=== PATIENT | female | born 1980 | race Caucasian/White ===

== ENCOUNTER 2021-08-11 16:46 | Outpatient (REF) | payer BC, MEDICAID, SELFPAY ==
[2021-08-11 20:54] LABS: HCT 42.9 % (36.0-46.0); HGB 14.1 g/dL (11.2-15.7); MCH 30.4 pg (27.0-33.0); MCHC 32.9 % (32.0-36.0); MCV 92.5 fL (80-95); Platelet Count 178 10^3/uL (130-400); RBC 4.64 10^6/uL (3.93-5.22); RDW 14.2 % (11.7-14.6); RDW-SD 48.4 fL; WBC 6.49 10^3/uL (4.4-10.8)
[2021-08-14 10:27] LABS: Hepatitis C Ab w Rflx HCV PCR Negative (Negative)
[2021-08-14 13:08] LABS: HIV-1/2 Ag & Ab Screen Negative (Negative)
== END 2021-08-11 16:47 | disposition home or self-care (01) ==
LOC: LBN 16:46
PROVIDERS: PCP Nurse Practitioner Adult Health; Visit Provider Nurse Practitioner Adult Health
DX: E66.01 Morbid (severe) obesity due to excess calories; Z51.81 Encounter for therapeutic drug level monitoring; Z11.4 Encounter for screening for human immunodeficiency virus [HIV]; Z11.59 Encounter for screening for other viral diseases
CPT/HCPCS: 80053; 80061; 85027; 86803; 87389; 84443

== ENCOUNTER 2023-11-11 12:29 | Emergency (ER) | payer BC, MEDICAID, SELFPAY ==
[2023-11-11 13:12] VITALS: BP 123/85; PULSE 87; TEMP 36.5; O2SAT 98
--- NOTE | 2023-11-11 14:45 | DI.US_ITS ---
Exam(s) US PELVIS EXAM: US PELVIS CLINICAL HISTORY: bloody discharge, no pain. TECHNIQUE: Transabdominal and transvaginal pelvic ultrasound was performed using standard protocol. COMPARISON: No exams were available for comparison FINDINGS: UTERUS: Position: Anteverted. Size: 10.8 long by 5.5 AP by 6.0 transverse cm Endometrium: 1.7 cm. Normal for patient's menstrual status. Myometrium: Unremarkable. Cervix: Unremarkable. OVARIES: Right: 4.0 x 2.8 x 3.4 cm Cyst or mass: No suspicious cystic or solid masses. There is a 2.2 x 1.6 x 2.2 cm simple cyst. Left: 2.6 x 1.7 x 2.2 cm Cyst or mass: No suspicious cystic or solid masses. DOPPLER: Color: Symmetric and uniform flow to both ovaries. CUL-DE-SAC: Free fluid: None. Other: None. IMPRESSION: 1. Normal-appearing uterus with endometrial stripe within normal limits. 2. Unremarkable bilateral ovaries. 3. Findings were discussed with the emergency department at 4:52 p.m. on 11/11/2023. DATA REPOSITORY:
--- NOTE | 2023-11-11 14:56 | ED.GENADUL_ITS ---
Discharge Plan Discharge Details Chief Complaint: Urinary Primary Care Provider: Ladi Serna ED Provider: Timoteo Queen Home Meds and New Rx's Prescriptions: New hydrocortisone-acetic acid 1-2 % drops 5 drp otic (ear) QID 7 Days Qty: 10 0RF No Action acetaminophen 500 mg capsule 1,000 mg PO Q6H PRN triamcinolone acetonide 0.1 % cream 1 applic topical BID PRN (Reason: itchy skin) Qty: 30 1RF Rx Instructions: apply thin layer to itchy spot (elbows, hands) up to twice per day risperidone 0.5 mg tablet 0.5 mg PO BID MDD 1mg Qty: 60 1RF mupirocin 2 % ointment 1 applic topical TID Qty: 15 0RF Rx Instructions: May substitute with cream if less expensive; use until lesion resolved prazosin 1 mg capsule 1 mg PO QHS escitalopram oxalate 5 mg tablet 15 mg PO DAILY ibuprofen 800 mg tablet 400 - 800 mg PO TID PRN (Reason: pain) Qty: 40 0RF Rx Instructions: Start by taking 800mg (1 tab) 3 times per day with food for 4 days for LEFT SHOULDER PAIN gabapentin 100 mg capsule 100 - 200 mg PO BID PRN (Reason: Left shoulder pain) Qty: 40 0RF Rx Instructions: Start by taking 100mg HS for left shoulder pain; sedating. topiramate [Topamax] 50 mg tablet 50 mg PO BID Qty: 180 3RF Rx Instructions: To add to 25mg BID for TDD 150mg topiramate 25 mg tablet 25 mg PO BID Qty: 180 3RF Rx Instructions: To add to 50mg BID for TDD 150mg atomoxetine 25 mg capsule 25 mg PO DAILY aripiprazole 5 mg tablet 5 mg PO DAILY Patient Comments: TAKE ONE TABLET BY MOUTH EVERY DAY STOP SEROQUEL Medical Decision Making This dictation utilizes [id number] dictation software and may contain unedited grammatical errors. 43 y/o F presents to ED today with a chief complaint of continued spotty bloody discharge since her menses the week of about a month ago, foul- smelling urine, and R ear pain. Onset and characteristics include one month of scant bloody discharge without symptoms of pre-syncope, dizziness, anemia, fever, abdominal pain, dysuria. Patients' medical history: history of psychosis, PTSD. Family and social history: noncontributory. Pertinent exam findings / vital signs include benign abdomen, nontoxic vitals, months-long symptoms without decompensation or worsening. Differential / pathologies of concern include Ruptured ovarian cyst, PID, STI, UTI, Fibroids, Endometriosis, Vaginitis. Diagnostic studies of: -UA, Vaginal wet mount, NG/GC, US Pelvis. -UA shows no UTI -other studies pending at sign-out Interventions of: -outpatient Rx of acetic acid/hydrocortisone drops for possible OE vs mechanical trauma of right ear canal. ED Course/Assessment/Plan: Patient seen in the emergency department with unrelated complaints, subacute vaginal bleeding without symptoms of near syncope or significant blood loss and without fevers or signs of infectious etiology of the pelvis. Right ear pain. There is no signs of acute otitis media and I did prescribe her hydrocortisone- acetic acid eardrops for possible otitis externa. UA, and GGC and vaginal pathogen screen is pending at the time of discharge, there is a possibility for vaginitis versus other pelvic pathology like a ruptured cyst or fibroids. The patient does not have a women's health provider and would like to be connected with the women's wellness center. Patient signed out to oncoming provider Annie Echevarria at shift change. Findings not consistent with PID, infectious etiology. Disposition of Right Ear Pain. Patient verbalized understanding of the plan and return to ED criteria and engaged in shared decision making. Medical Records Medical records reviewed: Yes I reviewed the patient's medical records. Imaging Data Radiologic Study: Imaging: Ultrasound Lab Data Labs: 11/11/23 15:20 Vaginal Vaginitis Screen - Pending Laboratory Tests Range/Units 11/11/23 15:20 Urine Color (Yellow) Yellow Urine Clarity (Clear) Clear Urine pH (5-8) 5.5 Ur Specific [place] (1.005-1.025) 1.020 Urine Protein (Negative) mg/dL Negative Urine Ketones (Negative) mg/dL Trace H Urine Blood (Negative) Moderate H Urine Nitrite (Negative) Negative Urine Bilirubin (Negative) Negative Urine Urobilinogen (Up to 0.2) mg/dL 1.0 H Ur Leukocyte Esterase (Negative) Negative Urine Glucose (Negative) mg/dL Negative HPI General Date/Time Provider Initiated Documentation: 11/11/23 13:36 . HPI Narrative: 43 year-old female presents to ED today by POV/ambulating with a chief complaint of bloody vaginal discharge that started around Thanksgiving during her last menses, with odd-smelling urine with onset the past few days. Also endorses R ear pain. Quality described as not painful at all, no radiation to dizziness, near-syncope, dysuria, hematuria, flank pain, abdominal pain, fever. Severity is described as mild. Palliating factors include nothing attempted. Provoking factors include nothing specific. Events leading up to the incident/Associated Symptoms: Patient does not have a Women's Health provider. Patient not anticoagulated. Related Data Home Medications Medication Instructions Recorded Confirmed acetaminophen 500 mg capsule 1,000 mg PO Q6H PRN 04/13/20 11/11/23 topiramate 25 mg tablet 25 mg PO BID #180 tabs 07/24/21 11/11/23 topiramate 50 mg tablet (Topamax) 50 mg PO BID #180 tabs 07/24/21 12/27/21 mupirocin 2 % topical ointment 1 applic topical TID #15 grams 08/11/21 11/11/23 risperidone 0.5 mg tablet 0.5 mg PO BID #60 tabs 08/11/21 11/11/23 triamcinolone acetonide 0.1 % 1 applic topical BID PRN itchy 08/11/21 12/27/21 topical cream skin #30 grams escitalopram oxalate 5 mg tablet 15 mg PO DAILY 12/27/21 11/11/23 gabapentin 100 mg capsule 100 - 200 mg (1 - 2 x 100 mg) PO 12/27/21 11/11/23 BID PRN Left shoulder pain #40 caps ibuprofen 800 mg tablet 400 - 800 mg (0.5 - 1 x 800 mg) PO 12/27/21 11/11/23 TID PRN pain #40 tabs prazosin 1 mg capsule 1 mg PO QHS 12/27/21 11/11/23 aripiprazole 5 mg tablet 5 mg PO DAILY 11/11/23 11/11/23 atomoxetine 25 mg capsule 25 mg PO DAILY 11/11/23 11/11/23 hydrocortisone-acetic acid 1 %-2 % 5 drp otic (ear) QID otitis 11/11/23 ear drops externa 7 days #10 mL Previous Rx's Medication Instructions Recorded topiramate 25 mg tablet 25 mg PO BID #180 tabs 07/24/21 topiramate 50 mg tablet (Topamax) 50 mg PO BID #180 tabs 07/24/21 mupirocin 2 % topical ointment 1 applic topical TID #15 grams 08/11/21 risperidone 0.5 mg tablet 0.5 mg PO BID #60 tabs 08/11/21 triamcinolone acetonide 0.1 % 1 applic topical BID PRN itchy 08/11/21 topical cream skin #30 grams gabapentin 100 mg capsule 100 - 200 mg (1 - 2 x 100 mg) PO 12/27/21 BID PRN Left shoulder pain #40 caps ibuprofen 800 mg tablet 400 - 800 mg (0.5 - 1 x 800 mg) PO 12/27/21 TID PRN pain #40 tabs hydrocortisone-acetic acid 1 %-2 % 5 drp otic (ear) QID otitis 11/11/23 ear drops externa 7 days #10 mL Allergies Allergy/AdvReac Type Severity Reaction Status Date / Time sertraline Allergy Intermediate rash Verified 11/11/23 13:17 morphine Allergy Unknown unknown Verified 11/11/23 13:17 General Stated Complaint: Urinary LULA: 4 Review of Systems All systems reviewed & are unremarkable except as noted in HPI and below PFSH All Active Problems (Updated 12/27/21 @ 14:42 by Ladi Serna NP) Anxiety (Chronic) Hammer toes of both feet (Acute) Shoulder pain (Chronic 07/08/13) LEFT: Suprapinatous tendonoapthy vs. partial tear 2010 MRI shoulder; s/p Martellisbach 2012 with injections, s/p PT; 2010 original on-the-job injury PTSD (post-traumatic stress disorder) (Chronic 08/20/14) Nicotine dependence (Chronic 03/11/13) Relapse 06/2014 1 PPD Quit 03/30/2014 with nicotine gum Formerly smoked 11/26 PPD 2019 Morbid obesity (Chronic 02/05/12) Nutrition referral, 2013 [place] [facility] [place] Mild obstructive sleep apnea (Chronic 09/13/14) Sleep study 08/2014 +significant hypoxemia CPAP recommended Depressive disorder (Chronic 02/05/12) Surgical History H/O arthroplasty 06/2020--PIP joint L 4th toe; [facility] Tubal Ligation, Laparoscopic 2003 Cholecystectomy Family History Mother Hypertensive disorder, systemic arterial Heart disease Father Diabetes Social History Smoking/Tobacco Use Status: Current every day Tobacco Type: cigarettes Years smoked: 32 Smoking risk assessment performed?: Yes Alcohol Intake: current Alcohol Intake frequency: a few times a month Drug use: Never Substance use type: does not use Caregiver/Support person: No Number of Children: 4 Communication Needs: None current occupation: [employer] What type of physical activity do you participate in: none Seatbelt use: always 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 SKIN: Warm, pink, dry, intact, without rashes/lesions/ulcerations. HEAD: Normocephalic, atraumatic, normal hair distribution for gender/age. EYES: Pupils PERRLA, EOMs intact without nystagmus, normal conjunctiva, no exudates on lids/lashes. ENT: Nares patent, no circumoral cyanosis, no facial swelling NECK: Supple, trachea midline, painless cervical ROM. LUNGS/CHEST: Non-labored respirations, normal A/P diameter, symmetrical expansion, no chest wall deformity HEART (CV/PV): Regular rate and rhythm without murmur, no peripheral edema, no JVD. ABDOMEN: Soft, non-distended, no guarding, no tenderness. Pelvic: deferred - patient prefers female provider, no pain or fever, reasonable to follow with OBGYN visit. MSK: Normal ROM, no swelling/deformity to bilateral UEs or LEs, moving all extremities without weakness, no cyanosis, spine midline without tenderness, normal curvature. NEURO: Mental Status AAOx4 - alert to person, place, time, events No facial droop, no forehead involvement. Motor: No focal weakness - strength 5/5 in bilateral UEs and LEs, proximal and distal, symmetric. Sensory: sensation intact to light touch globally. Gait normal: patient ambulated without ataxia into ED room. PSYCH: euthymic, cooperative, pleasant, appropriate speech Course Vital Signs Vital signs: Vital Signs Temperature 36.5 C 11/11/23 13:12 Pulse 87 11/11/23 13:12 Blood Pressure 123/85 11/11/23 13:12 Pulse Oximetry 98 11/11/23 13:12 Temperature 36.5 C 11/11/23 13:12 Temperature Source Temporal Artery Scan 11/11/23 13:12 Pulse 87 11/11/23 13:12 Respiratory Effort Normal, Non-Labored 11/11/23 13:22 Blood Pressure 123/85 11/11/23 13:12 Pulse Oximetry 98 11/11/23 13:12 Oxygen Delivery Method Room Air 11/11/23 13:12 Oxygen Flow Rate 0 11/11/23 13:12 Sign Out Sign Out Data: Sign Out Comment: pending vaginal microbial screen and US pelvis- likely vaginitis vs fibroids, plan to arrange follow-up with Women's Health Last updated by Timoteo Queen PA at 11/11/23 15:35 PAWSS Have you Been Recently Intoxicated or Drunk Within the Last 30 days?: No Have you Ever Experienced Previous Episodes of Alcohol Withdrawal?: No Have you ever Experienced Withdrawal Seizures?: No Have you ever Experienced Delirium Tremens(DT)s?: No Have you ever undergone Alcohol Rehabilitation Treatment (i.e, inpt ot outpatient treatment programs)?: No Have you ever Experienced Blackouts?: No Have you ever Combined Alcohol with other Downers within the last 90 days?: No Have you ever Combined Alcohol with any other Substance of Abuse during the last 90 days?: No Positive Blood Alcohol level on Presentation? [PCS.BAL]: No Evidence of Increased Autonomic Activity (i.e. HR>120, tremor, sweating, agitation, nausea)?: No Result: 0
[2023-11-11 15:32] LABS: Bilirubin Negative (Negative); Blood Moderate (Negative); Clarity Clear (Clear); Glucose Negative (Negative); Ketones Trace mg/dL (Negative); Leukocyte Esterase Negative (Negative); Nitrite Negative (Negative); pH 5.5 (5-8)
[2023-11-11 15:41] LABS: Bacteria Rare HPF (Negative); C & S Indicated? No; Casts Negative LPF (Negative); Crystals Negative HPF (Negative); Epithelial Cells Few HPF (Negative); Mucus Moderate (Negative); RBC 0-2 HPF (0-2); WBC 0-2 HPF (0-5)
--- NOTE | 2023-11-11 17:08 | ED.GENADUL_ITS ---
Discharge Plan Disposition Patient Disposition: Home Condition: Stable Discharge Details Clinical Impression: Bacterial vaginitis Primary Care Provider: Ladi Serna ED Provider: Duyen Echevarria Home Meds and New Rx's Prescriptions: New hydrocortisone-acetic acid 1-2 % drops 5 drp otic (ear) QID 7 Days Qty: 10 0RF metronidazole 500 mg tablet 500 mg PO BID Qty: 14 0RF Continued acetaminophen 500 mg capsule 1,000 mg PO Q6H PRN risperidone 0.5 mg tablet 0.5 mg PO BID MDD 1mg Qty: 60 1RF mupirocin 2 % ointment 1 applic topical TID Qty: 15 0RF Rx Instructions: May substitute with cream if less expensive; use until lesion resolved prazosin 1 mg capsule 1 mg PO QHS escitalopram oxalate 5 mg tablet 15 mg PO DAILY ibuprofen 800 mg tablet 400 - 800 mg PO TID PRN (Reason: pain) Qty: 40 0RF Rx Instructions: Start by taking 800mg (1 tab) 3 times per day with food for 4 days for LEFT SHOULDER PAIN gabapentin 100 mg capsule 100 - 200 mg PO BID PRN (Reason: Left shoulder pain) Qty: 40 0RF Rx Instructions: Start by taking 100mg HS for left shoulder pain; sedating. atomoxetine 25 mg capsule 25 mg PO DAILY aripiprazole 5 mg tablet 5 mg PO DAILY Patient Comments: TAKE ONE TABLET BY MOUTH EVERY DAY STOP SEROQUEL topiramate [Topamax] 50 mg tablet 200 mg PO BID Rx Instructions: To add to 25mg BID for TDD 150mg Discharge Instructions Instructions: Bacterial Vaginosis (ED) Referrals: [facility] [OTHER] - Ladi Serna, [employer] [employer] [Primary Care Provider] - Medical Decision Making report and care of patient received from Rakesh CISNEROS, chart reviewed and labs and US results pending. results returned and patient with BV, ultrasound negative. will provide flagyl 500 mg po prior to discharge, prescription sent to [facility], pharmacy on record. stable for discharge to home with no new services. Medical Records Medical records reviewed: Yes I reviewed the patient's medical records. HPI General Date/Time Provider Initiated Documentation: 11/11/23 13:36 . Related Data Home Medications Medication Instructions Recorded Confirmed acetaminophen 500 mg capsule 1,000 mg PO Q6H PRN 04/13/20 11/11/23 mupirocin 2 % topical ointment 1 applic topical TID #15 grams 08/11/21 11/11/23 risperidone 0.5 mg tablet 0.5 mg PO BID #60 tabs 08/11/21 11/11/23 escitalopram oxalate 5 mg tablet 15 mg PO DAILY 12/27/21 11/11/23 gabapentin 100 mg capsule 100 - 200 mg (1 - 2 x 100 mg) PO 12/27/21 11/11/23 BID PRN Left shoulder pain #40 caps ibuprofen 800 mg tablet 400 - 800 mg (0.5 - 1 x 800 mg) PO 12/27/21 11/11/23 TID PRN pain #40 tabs prazosin 1 mg capsule 1 mg PO QHS 12/27/21 11/11/23 aripiprazole 5 mg tablet 5 mg PO DAILY 11/11/23 11/11/23 atomoxetine 25 mg capsule 25 mg PO DAILY 11/11/23 11/11/23 hydrocortisone-acetic acid 1 %-2 % 5 drp otic (ear) QID otitis 11/11/23 ear drops externa 7 days #10 mL metronidazole 500 mg tablet 500 mg PO BID #14 tabs 11/11/23 topiramate 50 mg tablet (Topamax) 200 mg PO BID 11/11/23 11/11/23 Previous Rx's Medication Instructions Recorded mupirocin 2 % topical ointment 1 applic topical TID #15 grams 08/11/21 risperidone 0.5 mg tablet 0.5 mg PO BID #60 tabs 08/11/21 gabapentin 100 mg capsule 100 - 200 mg (1 - 2 x 100 mg) PO 12/27/21 BID PRN Left shoulder pain #40 caps ibuprofen 800 mg tablet 400 - 800 mg (0.5 - 1 x 800 mg) PO 12/27/21 TID PRN pain #40 tabs hydrocortisone-acetic acid 1 %-2 % 5 drp otic (ear) QID otitis 11/11/23 ear drops externa 7 days #10 mL metronidazole 500 mg tablet 500 mg PO BID #14 tabs 11/11/23 Allergies Allergy/AdvReac Type Severity Reaction Status Date / Time sertraline Allergy Intermediate rash Verified 11/11/23 13:17 morphine Allergy Unknown unknown Verified 11/11/23 13:17 General Stated Complaint: Urinary LULA: 4 PFSH All Active Problems (Updated 11/11/23 @ 16:51 by Duyen Echevarria NP) Bacterial vaginitis (Acute) Anxiety (Chronic) Hammer toes of both feet (Acute) Shoulder pain (Chronic 07/08/13) LEFT: Suprapinatous tendonoapthy vs. partial tear 2010 MRI shoulder; s/p Dreisbach 2012 with injections, s/p PT; 2009 original on-the-job injury PTSD (post-traumatic stress disorder) (Chronic 08/20/14) Nicotine dependence (Chronic 03/11/13) Relapse 06/2014 1 PPD Quit 03/30/2014 with nicotine gum Formerly smoked 11/26 PPD 2019 Morbid obesity (Chronic 02/05/12) Nutrition referral, 2013 Pursuing bariatrics [facility] [place] Mild obstructive sleep apnea (Chronic 09/13/14) Sleep study 08/2014 +significant hypoxemia CPAP recommended Depressive disorder (Chronic 02/05/12) Surgical History H/O arthroplasty 06/2020--PIP joint L 4th toe; [facility] Tubal Ligation, Laparoscopic 2003 Cholecystectomy Family History Mother Hypertensive disorder, systemic arterial Heart disease Father Diabetes Social History Smoking/Tobacco Use Status: Current every day Tobacco Type: cigarettes Years smoked: 32 Smoking risk assessment performed?: Yes Alcohol Intake: current Alcohol Intake frequency: a few times a month Drug use: Never Substance use type: does not use Caregiver/Support person: No Number of Children: 4 Communication Needs: None current occupation: [employer] What type of physical activity do you participate in: none Seatbelt use: always 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 Working smoke detector in home: Yes Carbon monox detector in home: No Firearms in home: No Do you feel safe at home: Yes Course Vital Signs Vital signs: Vital Signs Temperature 36.5 C 11/11/23 13:12 Pulse 87 11/11/23 13:12 Blood Pressure 123/85 11/11/23 13:12 Pulse Oximetry 98 11/11/23 13:12 Temperature 36.5 C 11/11/23 13:12 Temperature Source Temporal Artery Scan 11/11/23 13:12 Pulse 87 11/11/23 13:12 Respiratory Effort Normal, Non-Labored 11/11/23 13:22 Blood Pressure 123/85 11/11/23 13:12 Pulse Oximetry 98 11/11/23 13:12 Oxygen Delivery Method Room Air 11/11/23 13:12 Oxygen Flow Rate 0 11/11/23 13:12 Lab/Test Results Lab/Test Results: 11/11/23 15:20 Vaginal Vaginitis Screen - Final Laboratory Tests Range/Units 11/11/23 15:20 Urine Color (Yellow) Yellow Urine Clarity (Clear) Clear Urine pH (5-8) 5.5 Ur Specific [place] (1.005-1.025) 1.020 Urine Protein (Negative) mg/dL Negative Urine Ketones (Negative) mg/dL Trace H Urine Blood (Negative) Moderate H Urine Nitrite (Negative) Negative Urine Bilirubin (Negative) Negative Urine Urobilinogen (Up to 0.2) mg/dL 1.0 H Ur Leukocyte Esterase (Negative) Negative Urine RBC (0-2) HPF 0-2 Urine WBC (0-5) HPF 0-2 Ur Epithelial Cells (Negative) HPF Few Urine Crystals (Negative) HPF Negative Urine Bacteria (Negative) HPF Rare Urine Casts (Negative) LPF Negative Urine Mucus (Negative) Moderate Ur Culture Indicated? No Urine Glucose (Negative) mg/dL Negative Sign Out Sign Out Data: Sign Out Comment: pending vaginal microbial screen and US pelvis- likely vaginitis vs fibroids, plan to arrange follow-up with Women's Health Last updated by Timoteo Queen PA at 11/11/23 15:35 PAWSS Have you Been Recently Intoxicated or Drunk Within the Last 30 days?: No Have you Ever Experienced Previous Episodes of Alcohol Withdrawal?: No Have you ever Experienced Withdrawal Seizures?: No Have you ever Experienced Delirium Tremens(DT)s?: No Have you ever undergone Alcohol Rehabilitation Treatment (i.e, inpt ot outpatient treatment programs)?: No Have you ever Experienced Blackouts?: No Have you ever Combined Alcohol with other Downers within the last 90 days?: No Have you ever Combined Alcohol with any other Substance of Abuse during the last 90 days?: No Positive Blood Alcohol level on Presentation? [PCS.BAL]: No Evidence of Increased Autonomic Activity (i.e. HR>120, tremor, sweating, agitat ion, nausea)?: No Result: 0
[2023-11-11] MEDS: metroNIDAZOLE 500 MG TAB PO (17:28)
[2023-11-11 17:29] VITALS: BP 123/85; PULSE 87; TEMP 36.5; O2SAT 98
[2023-11-12 14:36] LABS: Chlamydia Result Negative (Negative); GC Result Negative (Negative)
== END 2023-11-11 17:32 | disposition home or self-care (01) ==
PROVIDERS: Physician Assistant; Emergency Provider Nurse Practitioner Acute Care; PCP Nurse Practitioner Adult Health
DX: H92.01 Otalgia, right ear (principal); N76.0 Acute vaginitis; R39.198 Other difficulties with micturition; E66.01 Morbid (severe) obesity due to excess calories; Z68.42 Body mass index [BMI] 45.0-49.9, adult; N89.8 Other specified noninflammatory disorders of vagina
CPT/HCPCS: 81025; 87491; 87591; 99284; 76856; 81003; 81015; 87480; 87510; 87660

== ENCOUNTER 2025-06-09 18:13 | Outpatient (CLI) | payer MEDICAID, SELFPAY ==
[2025-06-09 18:19] LABS: ALT 28 U/L (14-59); AST 17 U/L (15-37); Albumin 3.7 g/dL (3.4-5.0); Alkaline Phosphatase 51 U/L (46-116); Anion Gap 11.5 mmol/L (3-11); BUN 12 mg/dL (7-18); Bilirubin, Total 0.8 mg/dL (0.2-1.0); CO2 22.5 mmol/L (21.0-32.0); Calcium 8.4 mg/dL (8.5-10.1); Calculated LDL 124 mg/dL (<100); Chloride 105 mmol/L (98-107); Cholesterol 219 mg/dL (<200); Estimated GFR 107.95 (mL/min/1.73m2); Glucose 106 mg/dL (74-106); HDL Cholesterol 68 mg/dL (>or=50); Potassium 3.6 mmol/L (3.5-5.1); Sodium 139 mmol/L (136-145); TSH (W/Ref FT4) 1.59 uIU/mL (0.36-3.74); Total Protein 7.1 g/dL (6.4-8.2); Triglyceride 136 mg/dL (<150)
== END 2025-06-09 18:14 | disposition home or self-care (01) ==
LOC: LBO 18:15
PROVIDERS: Visit Provider Nurse Practitioner Family
DX: Z51.81 Encounter for therapeutic drug level monitoring (principal); F33.3 Major depressive disorder, recurrent, severe with psychotic symptoms
CPT/HCPCS: 36415; 80053; 80061; 84443